=== PATIENT | male | born 1955 | race Caucasian/White ===

== ENCOUNTER 2017-01-26 17:50 | Inpatient (IN) | payer OTHER ==
--- NOTE | 2017-01-26 17:54 | EDPHY ---
H & P Time Seen by Provider: 01/26/17 17:53 HPI/ROS: CHIEF COMPLAINT: Syncope HISTORY OF PRESENT ILLNESS: The patient presents to the ED after an episode of syncope. The patient reportedly has had symptoms of positional presyncope over the past several weeks. Today his symptoms worsen actually resulted in a syncopal episode. The patient denies significant fall or trauma. The patient has no complaints of chest pain, shortness of breath, cough or fever. The patient was noted to be mildly hypoxemic in triage. The patient does have a history of hypertension but denies history of coronary artery disease or lung disease. The patient denies pleuritic chest pain, prior PE/DVT or asymmetric calf pain or swelling. The patient denies any history of melena. The patient takes medications for control of his high blood pressure. The patient reportedly had a negative stress test years ago which was performed symptoms the patient cannot recall. REVIEW OF SYSTEMS: A comprehensive 10 point review of systems is otherwise negative aside from elements mentioned in the history of present illness. Source: Patient Exam Limitations: No limitations - Medical/Surgical History Hx Diabetes: No Other PMH: Past medical history: Hypertension - Social History Smoking Status: Never smoked Alcohol Use: Heavy - Physical Exam Exam: General Appearance: Slightly obese male, no acute distress Eyes: Pupils equal and round no pallor or injection ENT, Mouth: Mucous membranes moist Respiratory: Mild rales noted bilateral lung bases Cardiovascular: Regular rate and rhythm Gastrointestinal: Abdomen is soft and nontender, no masses, bowel sounds normal Neurological: A&O, normal motor function, normal sensory exam, normal cranial nerves Skin: Warm and dry, no rashes Musculoskeletal: Neck is supple nontender Extremities: symmetrical, full range of motion Constitutional: Initial Vital Signs Temperature (C) 37.6 C 01/26/17 17:50 Heart Rate 92 01/26/17 17:50 Respiratory Rate 20 01/26/17 17:50 Blood Pressure 102/69 01/26/17 17:50 O2 Sat (%) 90 L 01/26/17 17:50 O2 Delivery Mode Room Air Allergies/Adverse Reactions: ampicillin Allergy (Verified 02/21/14 14:34) Rash CATS Allergy (Uncoded 02/21/14 14:34) DOGS Allergy (Uncoded 02/21/14 14:34) FEATHERS Allergy (Uncoded 02/21/14 14:34) POLLEN Allergy (Uncoded 02/21/14 14:34) Medical Decision Making - Diagnostics EKG Interpretation: EKG: Complete interpretation has been separately recorded in the [facility] archive. Summary impression: Sinus rhythm, rate 90 Imaging Results: Imaging Impressions Chest X-Ray 01/26/17 18:02 Impression: Rightward displacement of the trachea within the superior mediastinum, potentially related to mediastinal mass or enlargement of the aortic arch. Otherwise negative chest. Chest CT 01/26/17 19:13 Impression: 1. 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 2. Fatty hepatic replacement. 3. Aortic and coronary atherosclerosis. Results called to Dr. Niels Hanks at 7:45 p.m. ED Course/Re-evaluation: The patient presents to the ED with multiple bouts of presyncope over the past several weeks an episode of syncope this evening. The patient does have an elevated creatinine of 1.8. The patient had an IV established. He received a L and half of fluid. The patient has no evidence of heart failure on exam. He has had some mild dyspnea. His D-dimer is negative which I feel adequately excludes pulmonary embolism. His chest x-ray demonstrates no evidence of pneumonia or pneumothorax. The patient does have some mild abnormalities noted on his chest x-ray. I did obtain a chest CT scan which demonstrates only a torturous aorta without evidence of mass or aneurysmal dilatation. The patient was re-evaluated by myself at 9:00 p.m. At this point time the etiology of his syncopal episode is uncertain. I do feel given his age and stuttering symptoms over the past several weeks that we should admit him for observation. Consultation was made with Dr. Ferrara from the hospitalist service. Patient will be admitted to the telemetry floor for observation this evening. Differential Diagnosis: Differential diagnosis considered includes vasovagal episode, arrhythmia, anemia , myocardial infarction, pneumonia, heart failure, metabolic abnormality, renal failure - Data Points Laboratory Results: Laboratory Results 01/26/17 Unknown 01/26/17 Unknown 01/26/17 01/26/17 01/26/17 Unknown Unknown Unknown WBC 5.41 10^3/uL 10^3/uL (3.80-9.50) RBC 4.74 10^6/uL 10^6/uL (4.40-6.38) Hgb 17.1 g/dL g/dL (13.7-17.5) Hct 47.6 % % (40.0-51.0) MCV 100.4 fL H fL (81.5-99.8) MCH 36.1 pg H pg (27.9-34.1) MCHC 35.9 g/dL g/dL (32.4-36.7) RDW 11.9 % % (11.5-15.2) Plt Count 203 10^3/uL 10^3/uL (150-400) MPV 10.7 fL fL (8.7-11.7) Neut % (Auto) 39.3 % % (39.3-74.2) Lymph % (Auto) 37.9 % % (15.0-45.0) Howard % (Auto) 17.0 % H % (4.5-13.0) Eos % (Auto) 3.7 % % (0.6-7.6) Baso % (Auto) 1.7 % % (0.3-1.7) Nucleat RBC Rel Count 0.0 % % (0.0-0.2) Absolute Neuts (auto) 2.13 10^3/uL 10^3/uL (1.70-6.50) Absolute Lymphs (auto) 2.05 10^3/uL 10^3/uL (1.00-3.00) Absolute Monos (auto) 0.92 10^3/uL H 10^3/uL (0.30-0.80) Absolute Eos (auto) 0.20 10^3/uL 10^3/uL (0.03-0.40) Absolute Basos (auto) 0.09 10^3/uL 10^3/uL (0.02-0.10) Absolute Nucleated RBC 0.00 10^3/uL 10^3/uL (0-0.01) Immature Gran % 0.4 % % (0.0-1.1) Immature Gran # 0.02 10^3/uL 10^3/uL (0.00-0.10) D-Dimer 0.27 ug/mLFEU ug/mLFEU (0.00-0.50) Sodium 134 mEq/L mEq/L (134-144) Potassium 3.9 mEq/L mEq/L (3.5-5.2) Chloride 100 mEq/L mEq/L (97-110) Carbon Dioxide 13 mEq/l L mEq/l (22-31) Anion Gap 21 mEq/L H mEq/L (8-16) BUN 18 mg/dL mg/dL (7-23) Creatinine 1.8 mg/dL H mg/dL (0.7-1.3) Estimated GFR 39 Glucose 102 mg/dL H mg/dL (70-100) Calcium 8.9 mg/dL mg/dL (8.5-10.4) Troponin I < 0.012 ng/mL ng/mL (0-0.034) NT-Pro-B Natriuret Pep 131 pg/mL H pg/mL (0-125) Medications Given: Discontinued Medications Sodium Chloride (Ns) 500 mls @ 1,000 mls/hr IV ONCE ONE PRN Reason: Protocol Stop: 01/26/17 18:30 Last Admin: 01/26/17 18:05 Dose: 500 mls Sodium Chloride (Ns) 1,000 mls @ 0 mls/hr IV ONCE ONE; Wide Open PRN Reason: Protocol Stop: 01/26/17 19:12 Last Admin: 01/26/17 20:05 Dose: 1,000 mls Departure - Departure Disposition: [facility] Inpatient Acute Clinical Impression: Syncope Condition: Good Referrals: Patient,NotPresent [Unknown] - As per Instructions
[2017-01-26] MEDS ORDERED: NS 500 ML IV ONE (18:01)
--- NOTE | 2017-01-26 18:11 | CPEKG ---
Heart Rate: 90 RR Interval: 667 P-R Interval: 164 QRSD Interval: 80 QT Interval: 388 QTC Interval: 475 P Angela: 41 QRS Angela: 78 T Wave Angela: 10 EKG Severity - NORMAL ECG - EKG Impression: SINUS RHYTHM Electronically Signed By: Niels Hanks 26-Jan-2017 20:20:56
[2017-01-26 18:17] LABS: % IMMATURE GRANULYOCYTES 0.4 % (0.0-1.1); ABSOLUTE IMMATURE GRANULOCYTES 0.02 10^3/uL (0.00-0.10); ADD DIFF? NO; ADD MORPH? NO; ADD SCAN? NO; ATYPICAL LYMPHOCYTE FLAG 10 (0-99); FRAGMENT RBC FLAG 0 (0-99); HEMATOCRIT 47.6 % (40.0-51.0); HEMOGLOBIN 17.1 g/dL (13.7-17.5); LEFT SHIFT FLG 0 (0-99); LIPEMIA HEMOLYSIS FLAG 90 (0-99); MEAN CELL HEMOGLOBIN 36.1 pg (27.9-34.1); MEAN CELL HEMOGLOBIN CONCENTR. 35.9 g/dL (32.4-36.7); MEAN CELL VOLUME 100.4 fL (81.5-99.8); MEAN PLATELET VOLUME 10.7 fL (8.7-11.7); PLATELET CLUMPS FLAG 10 (0-99); PLATELET COUNT 203 10^3/uL (150-400); RED BLOOD CELL COUNT 4.74 10^6/uL (4.40-6.38); RED CELL DISTRIBUTION WIDTH 11.9 % (11.5-15.2)
[2017-01-26 18:26] LABS: ANION GAP 21 mEq/L (8-16); CALCIUM 8.9 mg/dL (8.5-10.4); CARBON DIOXIDE 13 mEq/l (22-31); CHLORIDE 100 mEq/L (97-110); CREATININE 1.8 mg/dL (0.7-1.3); GLOMERULAR FILTRATION RATE 39; GLUCOSE 102 mg/dL (70-100); POTASSIUM 3.9 mEq/L (3.5-5.2); SODIUM 134 mEq/L (134-144)
[2017-01-26 18:38] LABS: TROPONIN I < 0.012 ng/mL (0-0.034)
[2017-01-26] MEDS ORDERED: NS 1,000 ML IV ONE (19:11)
[2017-01-26] MEDS ORDERED: ACETAMINOPHEN 325 MG TAB PO PRN (23:11)
--- NOTE | 2017-01-26 23:49 | GHP ---
[f rep st] HISTORY AND PHYSICAL DATE OF ADMISSION: 01/26/2017 CHIEF COMPLAINT: Syncope. 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 ith his with history of hypertension and GERD, who presented to the hospital today after having 2 syncopal episodes that were witnessed by his . He states he has been dizzy with standing for about the past month. He has not been having any chest pain, but has been having some shortness of breath with exertion, which he attributes to weight gain. Today, at 3:30 this afternoon, he was getting out of his truck and talking to his when he abrup tly fell to the ground and lost consciousness. He denies any preceding chest pain or palpitations. He had no prodromal symptoms whatsoever. His tells me that he was unconscious for about 5 sec onds and rapidly came to. He had no witnessed seizure activity. He had no loss of bowel or bladder control. After this event, he was feeling better. He had dinner and got up from the table and was walking in to the kitchen when he had a 2nd syncopal episode where again he fell to the ground and had a 5 seco nd loss of consciousness. He then came to the emergency department for further evaluation. PAST MEDICAL HISTORY: Hypertension, GERD. PAST SURGICAL HISTORY: Hernia repair 3 years ago and knee surgery over 30 years ago. HOME MEDICATIONS: Reviewed, refer to [employer] for details. ALLERGIES: Penicillin. SOCIAL HISTORY: Resides in [place]. He denies any tobacco or illicit drug use. He drinks 3-4 al coholic beverages per day. He denies any history of alcohol withdrawal. FAMILY HISTORY: Reviewed and significant for heart disease and a pacemaker in his father. REVIEW OF SYSTEMS: Comprehensive 10-point review of systems was done and is negative except for as mentioned in the HPI. PHYSICAL EXAM: VITAL SIGNS: Blood pressure 120/92, pulse of 90, respiratory rate 14, O2 saturation 93% on room air, temperature afebrile. GENERAL: No acute distress. HEAD: Normocephalic, atrauma tic. EYES: PERRLA. Sclerae anicteric. MOUTH: Moist mucous membranes. NECK: Supple. No lympha denopathy. CARDIOVASCULAR: S1-S2. No murmurs, rubs, clicks, gallops, or JVD. No lower extremity edema. No carotid bruits. PULMONARY: Lungs are clear. No wheezes, rales, or rhonchi. ABDOMEN: Soft, protuberant, but no guarding or rebound tenderness. Normoactive bowel sounds. EXTREMITIES: No clubbing or cyanosis. NEURO: Cranial nerves 2-12 grossly intact. No focal motor or sensory def icits. SKIN: Clear. No rashes. DIAGNOSTICS: WBC is 5.4, hemoglobin 17.1, hematocrit 47.6, platelets 203. MCV 100.4. D-dimer was negative. Sodium 134, potassium 3.9, chloride 100, CO2 13, BUN 18, creatinine 1.8, glucose 102, tro ponin less than 0.012. BNP 131. CT of the chest on 01/26/2017, CT of the chest was done due to tra cheal displacement, which showed rightward tracheal deviation in the superior secondary t o ectatic aortic arch without aneurysm. Refer to report for further details. EKG, which I visualized and personally interpreted, sinus rhythm, rate 90 beats per minute, no acute ischemic changes. ASSESSMENT AND PLAN: This is a 61-year-old male with history of hypertension presenting with: 1. Two episodes of syncope concerning for cardiogenic in etiology given the abrupt nature. Plan: The patient will be placed on observation. Will monitor him on telemetry. Will obtain carotid Dopp lers, as well as echocardiogram. 2. Acute kidney injury. Plan: Patient's last documented creatinine was 1 three years ago and is n ow up to 1.8. Will hold his angiotensin receptor jack and obtain a renal ultrasound. He has rec eived some IV fluids in the emergency department. Will also obtain a urinalysis. Repeat metabolic panel in morning. 3. Daily alcohol use. Plan: Monitor for signs and symptoms of alcohol withdrawal. 4. Patient will be placed on observation. Will defer starting venous thromboembolism prophylaxis a t this time. /[id number]/MODL
[2017-01-27 06:59] LABS: ANION GAP 11 mEq/L (8-16); CALCIUM 8.4 mg/dL (8.5-10.4); CARBON DIOXIDE 17 mEq/l (22-31); CHLORIDE 107 mEq/L (97-110); CREATININE 1.2 mg/dL (0.7-1.3); GLOMERULAR FILTRATION RATE > 60; GLUCOSE 100 mg/dL (70-100); POTASSIUM 4.2 mEq/L (3.5-5.2); SODIUM 135 mEq/L (134-144)
[2017-01-27] MEDS: PANTOPRAZOLE SODIUM 40 MG TAB PO SCH (08:13)
[2017-01-27] MEDS: LOSARTAN POTASSIUM 50 MG TAB PO SCH (08:13)
[2017-01-27] MEDS: HYDROCHLOROTHIAZIDE 25 MG TAB PO SCH (08:13)
[2017-01-27] MEDS: CITALOPRAM 20 MG TAB PO SCH (08:13)
--- NOTE | 2017-01-27 13:01 | ECHO ---
[id number] + + [address] : : [place] [address] : : [phone] + Adult Echocardiographic Report + ---+ :Name: MARCELINA SORTO TStudy Date: 01/27/2017 10:35 AM : : Hospital Admission Number: [id number] Location: 202: :: 1955 Gender: Male Height: 67 in : :Age: 61 yrs Race: WH Weight: 206 lb : :Reason For Study: Syncope : : BSA: 2.0 meters2 : + ---+ MMode/2D Measurements \T\ Calculations IVSd: 1.1 cm LVIDd: 5.1 cm FS: 43.1 % Ao root diam: LVPWd: 0.96 cm LVIDs: 2.9 cm EDV(Teich): 4.3 cm 122.5 ml LA dimension: ESV(Teich): 4.3 cm 31.9 ml EF(Teich): 74.0 % LVLd ap4: 7.7 cm SV(MOD-sp4): EDV(MOD-sp4): 61.0 ml 84.0 ml LVLs ap4: 6.3 cm ESV(MOD-sp4): 23.0 ml EF(MOD-sp4): 72.6 % Normal Measurement Values: + + :LVIDd (3.5-5.7cm) IVSd (0.6-1.1cm) LVPWd (0.6-1.1cm) Aortic Root (2.0-3.7cm)Left Atrium (1.5-4.0cm): :LV Vol(d) (76-115ml) LV Vol(s) (29-48ml) Ejec Fraction (50-65%)PV Umang (0.6- 1.2m/s) TV Umang (0.4-1.0m/s) : :MV E Umang (0.8-1.0m/s)MV A Umang (0.3-1.0m/s)LVOT Umang (0.7-1.2m/s) Asc Ao Umang ( 0.9-1.8m/s) : + + Doppler Measurements \T\ Calculations MV E max umang: 56.8 cm/sec Ao V2 max: 120.3 cm/sec TR max umang: 259.1 cm/sec MV A max umang: 75.5 cm/sec Ao max P.8 mmHg TR max P.9 mmHg MV E/A: 0.75 RAP systole: 5.0 mmHg RVSP(TR): 31.9 mmHg Left Ventricle The left ventricle is normal in size. There is normal left ventricular wall thickness. Left ventricular systolic function is normal. Ejection Fraction = 60-65%. The left ventricular ejection fraction is calculated at 74.0 %. There is Doppler evidence for diastolic dysfunction. No regional wall motion abnormalities noted. Right Ventricle The right ventricle is normal in size and function. Atria The left atrial size is normal. Right atrial size is normal. Mitral Valve The mitral valve is normal in structure and function. There is no evidence of mitral valve prolapse. There is no mitral valve stenosis. There is trace mitral regurgitation. Tricuspid Valve Normal tricuspid valve. There is trace tricuspid regurgitation. Aortic Valve The aortic valve is trileaflet. The aortic valve opens well. There is no aortic stenosis. Trace aortic regurgitation. Pulmonic Valve The pulmonic valve is not well visualized. There is no pulmonic valvular regurgitation. Great Vessels The aortic root is normal size. Borderline dilated ascending aorta. Pericardium/Pleural There is no pericardial effusion. Conclusion A complete two-dimensional transthoracic echocardiogram was performed (2D, M-mode, Doppler and color flow Doppler). (1) Left ventricular systolic ejection fraction was normal (60-65%) - normal wall motion (2) No left ventricular hypertrophy (3) Diastolic dysfunction was present (4) Normal right ventricular size and function (5) Normal atrial dimensions (6) Physiologic mitral regurgitation (7). Trileaflet aortic valve without stenosis. Physiologic insufficiency was noted (8) Physiologic tricuspid regurgitation - RVSP was within normal limits (9) Poor visualization of the pulmonic valve (10) No comparison echocardiograms Final Reading Physician: Althea Harris signed on 01/27/2017 12:59 PM Ordering Physician: Bo Stephens Performed By: Rolanda Proctor [facility]
--- NOTE | 2017-01-27 15:42 | HOSPPROG ---
Hospitalist Progress Note Assessment/Plan: # syncope - concerning story given no prodrome; - needs second troponin - will get inpatient rohit tomorrow am # CAD by CT scan - asa # htn - cont meds # CHERELLE - better with fluids - needs close f/u while on cozaar Subjective: still feels unsteady on his feet Objective: Vital Signs Temp Pulse Resp BP Pulse Ox 36.8 C 83 19 148/108 H 96 01/27/17 12:16 01/27/17 12:16 01/27/17 12:16 01/27/17 12:16 01/27/17 12:16 Laboratory Results 01/26/17 Unknown 01/27/17 06:05 01/26/17 01/27/17 01/28/17 05:59 05:59 05:59 Intake Total 2250 Output Total 180 Balance 2070 chart reviewed ECG reviewed CXR personally reviewed - Physical Exam Constitutional: no apparent distress Cardiovascular: regular rate and rhythym, no murmur, rub, or gallop Respiratory: no respiratory distress, no rales or rhonchi, clear to auscultation Gastrointestinal: normoactive bowel sounds, soft, non-tender abdomen, no palpable masses ICD10 Worksheet Patient Problems: Problems Problem Status Onset Syncope Acute
[2017-01-27] MEDS: amLODIPine BESYLATE 5 MG TAB PO SCH (16:47)
[2017-01-27] MEDS ORDERED: hydrALAZINE 20 MG/ML VIAL IVP PRN (18:20)
[2017-01-27] MEDS ORDERED: METOPROLOL TARTRATE 5 MG/5 ML INJ IVP ONE (18:20)
[2017-01-28 04:31] LABS: % IMMATURE GRANULYOCYTES 0.4 % (0.0-1.1); ABSOLUTE IMMATURE GRANULOCYTES 0.02 10^3/uL (0.00-0.10); ADD DIFF? NO; ADD MORPH? NO; ADD SCAN? NO; ATYPICAL LYMPHOCYTE FLAG 10 (0-99); FRAGMENT RBC FLAG 0 (0-99); HEMATOCRIT 45.5 % (40.0-51.0); HEMOGLOBIN 16.3 g/dL (13.7-17.5); LEFT SHIFT FLG 0 (0-99); LIPEMIA HEMOLYSIS FLAG 90 (0-99); MEAN CELL HEMOGLOBIN 36.1 pg (27.9-34.1); MEAN CELL HEMOGLOBIN CONCENTR. 35.8 g/dL (32.4-36.7); MEAN CELL VOLUME 100.7 fL (81.5-99.8); MEAN PLATELET VOLUME 10.6 fL (8.7-11.7); PLATELET CLUMPS FLAG 0 (0-99); PLATELET COUNT 176 10^3/uL (150-400); RED BLOOD CELL COUNT 4.52 10^6/uL (4.40-6.38); RED CELL DISTRIBUTION WIDTH 11.7 % (11.5-15.2)
[2017-01-28 04:59] LABS: ANION GAP 11 mEq/L (8-16); CALCIUM 9.5 mg/dL (8.5-10.4); CARBON DIOXIDE 22 mEq/l (22-31); CHLORIDE 100 mEq/L (97-110); GLOMERULAR FILTRATION RATE > 60; GLUCOSE 104 mg/dL (70-100); POTASSIUM 3.9 mEq/L (3.5-5.2); SODIUM 133 mEq/L (134-144)
[2017-01-28] MEDS: PANTOPRAZOLE SODIUM 40 MG TAB PO SCH (07:19)
[2017-01-28] MEDS: CITALOPRAM 20 MG TAB PO SCH (07:19)
[2017-01-28] MEDS: LOSARTAN POTASSIUM 50 MG TAB PO SCH (07:19)
[2017-01-28] MEDS: HYDROCHLOROTHIAZIDE 25 MG TAB PO SCH (07:20)
[2017-01-28] MEDS: amLODIPine BESYLATE 5 MG TAB PO SCH (07:21)
[2017-01-28] MEDS: ASPIRIN EC 81 MG TAB PO SCH (07:21)
[2017-01-28] MEDS ORDERED: REGADENOSON 0.4 MG/5 ML SYR IVP ONE (11:56)
--- NOTE | 2017-01-28 12:32 | HOSPPROG ---
Hospitalist Progress Note Assessment/Plan: 61 yo M w htn admitted w syncope syncope - concerning story given no prodrome; -trop neg neg d dimer but story c/f PE no bradyarrhythmia on telemetry although story also concerning fo arrhythmia 1. lexiscan today 2. CT PE if rohit neg 3. outpt monitor CAD by CT scan - asa lexiscan today htn - cont meds poorly controlled on regimen here amlodipine added outpt follow up CHERELLE - better with fluids - needs close f/u while on cozaar dispo: inpatient Subjective: tele: no bradyarrhythmia. sinus tachycardia. some suggestion of SVT (interp by me). case d/w Gale Umanzor cardiology PA Objective: Vital Signs Temp Pulse Resp BP Pulse Ox 36.7 C 104 H 17 138/107 H 95 01/28/17 11:08 01/28/17 11:08 01/28/17 11:08 01/28/17 11:08 01/28/17 11:08 Laboratory Results 01/28/17 03:23 01/28/17 03:23 01/27/17 01/28/17 01/29/17 05:59 05:59 05:59 Intake Total 650 Balance 650 - Physical Exam Constitutional: no apparent distress, appears nourished Eyes: PERRL, anicteric sclera Ears, Nose, Mouth, Throat: moist mucous membranes, hearing normal Cardiovascular: regular rate and rhythym, no murmur, rub, or gallop Respiratory: no respiratory distress, no rales or rhonchi Gastrointestinal: normoactive bowel sounds, soft, non-tender abdomen Genitourinary: No johnson in urethra Skin: warm, normal color Musculoskeletal: full muscle strength, no muscle tenderness Neurologic: AAOx3, sensation intact bilaterally Psychiatric: interacting appropriately ICD10 Worksheet Patient Problems: Problems Problem Status Onset Syncope Acute
--- NOTE | 2017-01-28 12:36 | PDCARST ---
CAR Stress Test Results Type of Stress Test: Lexiscan stress test Indication: syncope Description of Procedure: After informed consent was obtained, pt was established to ECG, blood pressure, HR and oximetry monitoring. STRESS EKG AND HEMODYNAMIC DATA. Resting heart rate: 80 BPM. Resting ECG: SR. Resting blood pressure: 122/88 mmHg. O2 saturation at rest: 94%. Peak heart rate: 127 BPM. Peak blood pressure: 122/86 mmHg. Arrhythmias: none. Symptoms : The patient experienced no typical symptoms of angina during stress or recovery. Stress/Infusion ECG: No change in rhythm with no significant ST/T wave changes. Stress/infusion O2 saturation: 97% Impression: Uneventful Lexiscan infusion. Conclusion: Await nuclear imaging.
[2017-01-28] MEDS ORDERED: IOPAMIDOL (ISOVUE 370) 100 ML BTL IV ONE (16:49)
[2017-01-29 07:21] VITALS: BP 139/111; PULSE 90; RESP 16; TEMP 97.5; O2SAT 93
[2017-01-29] MEDS: LOSARTAN POTASSIUM 50 MG TAB PO SCH (08:00)
[2017-01-29] MEDS: amLODIPine BESYLATE 5 MG TAB PO SCH (08:00)
[2017-01-29] MEDS: HYDROCHLOROTHIAZIDE 25 MG TAB PO SCH (08:00)
[2017-01-29] MEDS: CITALOPRAM 20 MG TAB PO SCH (08:00)
[2017-01-29] MEDS: PANTOPRAZOLE SODIUM 40 MG TAB PO SCH (08:00)
[2017-01-29] MEDS: ASPIRIN EC 81 MG TAB PO SCH (08:00)
--- NOTE | 2017-01-29 10:16 | PDDCSUM ---
Discharge Summary Discharge Summary: Dates of service 01/27-01/29/17 Discharge dx: # syncope, likely vasovagal # cherelle # HTN Consultations: none procedures performed: echo, abd us, nuc stress test, carotid US, chest CT, chest CTA Hospital course by problem: 61 yo M w htn admitted w syncope syncope - concerning story given no prodrome; w/u including CTA, nuc stress test all negative. No events noted on tele, no further sxs. All in all sounds most c/w vasovagal syncope with likely component of orthostasis. Reviewed with cardiology who will mail him an event monitor and f/u with him as an OP in the next 2 weeks. Reviewed hydration strategies and taking time in changing positions. He agrees with these plans. CHERELLE: presumably pre renal and now normalized, abd us with no e/o renal disease htn - added amlodipine for better control, remains mildly elevated but will hold off on adding further medications until op f/u to determine if truly needed. currently on amlodipine and losartan etoh: reports fairly heavy etoh use, no hx of withdrawal, does have a tremor that he states has been present x 40 years-- corroborates this, has voice tremor as well that has been present just as long without change. tremor: as above, sounds like essential tremor, given length of sxs w/o change does not sound c/w Parkinsonism, he states both he and his PCP are aware dispo: dc home f/u with pcp, cardiology new meds: amlodipine > 45 minutes spent in dc of patient more than half in face to face counseling of patient and his regarding f/u care plans and likely etiology of syncope
--- NOTE | 2017-01-31 07:47 | CPEKG ---
Heart Rate: 94 RR Interval: 638 P-R Interval: 164 QRSD Interval: 88 QT Interval: 376 QTC Interval: 471 P [place]: 55 QRS [place]: 80 T Wave [place]: 8 EKG Severity - ABNORMAL ECG - EKG Impression: SINUS RHYTHM Electronically Signed By: Davin Masterson 01-Feb-2017 09:02:45
== END 2017-01-29 10:53 | disposition home or self-care (01) | DRG 312 ==
LOC: EDUNIT# → F2W 21:54 → OBSVTOIN 01-27 15:44
PROVIDERS: ADMIT Hospitalist; ATTEND Family Medicine
DX: R55 Syncope and collapse (principal); N17.9 Acute kidney failure, unspecified; I10 Essential (primary) hypertension; G25.0 Essential tremor; Z72.89 Other problems related to lifestyle
CPT/HCPCS: A9500; G0378; J0360; J2785; Q9967